=== PATIENT | male | born 1970 | race Two or more races ===

== ENCOUNTER → 2020-05-31 | Outpatient (CLI) | payer OTHER | END | disposition home or self-care (01) | LOC: LAB SALUS 08:31 | PROVIDERS: ATTEND General Practice | DX: Z11.4 Encounter for screening for human immunodeficiency virus [HIV] (principal); Z12.11 Encounter for screening for malignant neoplasm of colon; Z72.51 High risk heterosexual behavior; Z11.3 Encounter for screening for infections with a predominantly sexual mode of transmission; Z11.59 Encounter for screening for other viral diseases; Z13.220 Encounter for screening for lipoid disorders ==

== ENCOUNTER 2025-05-21 10:15 | Inpatient (IN) | payer OTHER ==
[~2025-05-21] VITALS: Ht 172.7 cm; Wt 81.6 kg
[2025-05-21 11:36] LABS: PH,URINE 8.5 (5.0-8.0); URINE APPEARANCE Clear; URINE BILIRRUBIN Negative (NEGATIVE); URINE BLOOD Negative; URINE COLOR Yellow; URINE KETONE Negative (NEGATIVE); URINE LEUKOCYTE Negative; URINE NITRATE Negative; URINE UROBILINOGEN 0.2 E.U./dl
[2025-05-21 11:37] LABS: URINE RBC 9.8 uL (0.0-20.8)
[2025-05-21 11:38] LABS: URINE BACTERIA 1.2 uL (0.0-1933); URINE EPITHELIAL CELLS 0.3 uL (0.0-38.8); URINE GLUCOSE 100 MG/DL (NEGATIVE); URINE PROTEIN 300 (NEGATIVE); URINE WBC 0.6 uL (0.0-23.2)
[2025-05-21 11:41] LABS: BASO % 0.9 % (0.1-1.2); EOS # 0.48 (0.04-0.54); EOS % 7.1 % (0.7-7.0); HEMATOCRIT 36.6 % (40.1-51.0); HEMOGLOBIN 11.9 g/dL (13.7-17.5); LYMPH # 1.54 (1.18-3.74); LYMPH % 22.7 % (19.3-53.1); MEAN CORPUSCULAR HEMOGLOBIN 31.4 pg (25.6-32.2); MONO # 0.43 (0.24-0.82); MONO % 6.3 % (4.7-12.5); NEUT # 4.27 (1.56-6.13); NEUT % 62.9 % (34.0-71.1); RED BLOOD COUNT 3.79 M/uL (4.63-6.08); RED CELL DISTRIBUTION WIDTH 13.2 % (11.6-14.4)
[2025-05-21 11:47] LABS: PLATELET COUNT 120 K/uL (163-369)
[2025-05-21 12:22] LABS: ALBUMIN 3.9 gm/dL (3.4-5.0); BILIRUBIN TOTAL 0.51 mg/dL (0.3-1.2); CALCIUM 10.1 mg/dL (8.5-10.1); GFR 7.65; GLOBULINA 3.9 G/DL (2.4-3.5); INR 1.08; PARTIAL THROMBOPLASTIN TIME 27.1 SECONDS (22.0-34.0); POTASSIUM 5.35 mEq/L (3.5-5.1); PROTHROMBIN TIME 11.7 SECONDS (9.0-11.5); TOTAL PROTEIN 7.8 gm/dL (6.4-8.2)
[2025-05-21 12:36] VITALS: BP 133/78
[2025-05-21] MEDS ORDERED: SEVELAMER CARB800 MG (12:47)
[2025-05-21] MEDS ORDERED: ATORVASTATIN CA20 MG (12:48)
[2025-05-21] MEDS ORDERED: IRBESARTAN300 MG (12:48)
[2025-05-21] MEDS ORDERED: TAMS0.4C (12:48)
[2025-05-21 14:42] LABS: CREATININE SERUM 7.44 mg/dL (0.70-1.30)
[2025-05-24] MEDS ORDERED: DEXAMETHASONE SODIUM PHOSPHATE 4 MG/ML VIAL ONE (12:09)
[2025-05-24] MEDS ORDERED: ENALAPRILAT DIHYDRATE 1.25 MG/ML VIAL IV PRN (15:15)
[2025-05-24] MEDS ORDERED: ONDANSETRON HCL 2 MG/ML VIAL IV PRN (15:15)
[2025-05-24] MEDS ORDERED: DIPHENHYDRAMINE HCL 75 MG,LIDOCAINE HCL 30 ML,MAG HYDROX/ALUMINUM HYD/SIMETH 30 ML PO SCH (17:00)
[2025-05-24] MEDS ORDERED: CYCLOBENZAPRINE HCL 5 MG TABLET PO SCH ×2 (17:00)
[2025-05-24] MEDS ORDERED: ACETAMINOPHEN 500 MG GEL..CAP PO SCH (17:00)
[2025-05-24] MEDS ORDERED: CALCITRIOL 0.5 MCG CAPSULE PO SCH (17:00)
[2025-05-24] MEDS ORDERED: CALCIUM CARBONATE/VITAMIN D3 1 TAB TABLET PO SCH (17:00)
[2025-05-24 21:36] VITALS: BP 157/90; O2SAT 99
[2025-05-25 00:40] VITALS: BP 125/75; O2SAT 97
[2025-05-25] MEDS ORDERED: MAG HYDROX/ALUMINUM HYD/SIMETH 30 ML BLIST.PACK PO ONE ×2 (07:58→15:44)
[2025-05-25 09:10] VITALS: BP 124/77; O2SAT 99
[2025-05-25 09:16] LABS: ALBUMIN 3.8 gm/dL (3.4-5.0); CALCIUM 8.9 mg/dL (8.5-10.1); GFR 4.93; POTASSIUM 5.43 mEq/L (3.5-5.1)
[2025-05-25 09:23] LABS: CREATININE SERUM 10.9 mg/dL (0.70-1.30)
[2025-05-25] MEDS ORDERED: TAMSULOSIN HCL 0.4 MG CAP PO SCH (12:00)
[2025-05-25] MEDS ORDERED: IRBESARTAN 300 MG TABLET PO SCH (12:00)
[2025-05-25] MEDS ORDERED: DIPHENHYDRAMINE HCL 12.5 MG/5 ML BLIST.PACK PO ONE (15:44)
[2025-05-25] MEDS ORDERED: HEPARIN SODIUM,PORCINE 5,000 UNITS/ML VIAL IV NR (16:45)
[2025-05-25 17:41] VITALS: BP 126/73; O2SAT 100
[2025-05-26 01:28] VITALS: BP 118/71; O2SAT 98
[2025-05-26 07:53] VITALS: BP 132/78
[2025-05-26 09:34] LABS: ALBUMIN 3.3 gm/dL (3.4-5.0); CALCIUM 8.3 mg/dL (8.5-10.1); GFR 7.5; PHOSPHOROUS 4.3 mg/dL (2.5-4.9); POTASSIUM 5.13 mEq/L (3.5-5.1)
[2025-05-26 09:47] LABS: CREATININE SERUM 7.57 mg/dL (0.70-1.30)
== END 2025-05-26 14:57 | disposition home or self-care (01) | DRG 625 ==
LOC: SURH 05-24 09:30 → O/R 05-24 09:58 → SURH 05-24 10:15 → MEDI 05-25 06:42
PROVIDERS: Internal Medicine Nephrology; ADMIT Surgery; ATTEND Surgery
PROC: 0GBM0ZZ Excision of Left Superior Parathyroid Gland, Open Approach (ICD-10-PCS; 2025-05-24)
PROC: 0GBN0ZZ Excision of Right Inferior Parathyroid Gland, Open Approach (ICD-10-PCS; 2025-05-24)
PROC: 0GBP0ZZ Excision of Left Inferior Parathyroid Gland, Open Approach (ICD-10-PCS; principal; 2025-05-24 09:30)
PROC: 5A1D70Z Performance of Urinary Filtration, Intermittent, Less than 6 Hours Per Day (ICD-10-PCS; 2025-05-25)
DX: E21.1 Secondary hyperparathyroidism, not elsewhere classified (principal); N18.6 End stage renal disease; I12.0 Hypertensive chronic kidney disease with stage 5 chronic kidney disease or end stage renal disease; Z99.2 Dependence on renal dialysis